=== PATIENT | female | born 1935 | race Two or more races ===

== ENCOUNTER 2018-07-26 09:46 | Outpatient (CLI) | payer OTHER | END 2018-07-26 10:04 | disposition home or self-care (01) | LOC: MAMO-SONO 09:46 | DX: Z12.31 Encounter for screening mammogram for malignant neoplasm of breast (principal); Z87.898 Personal history of other specified conditions; R10.84 Generalized abdominal pain; N95.1 Menopausal and female climacteric states; N60.01 Solitary cyst of right breast; N60.02 Solitary cyst of left breast ==